=== PATIENT | female | born 1970 | race Two or more races ===

== ENCOUNTER 2017-01-02 21:56 | Emergency (ER) | payer OTHER | END 2017-01-03 00:04 | disposition home or self-care (01) | LOC: ED 21:56 | DX: J70.5 Respiratory conditions due to smoke inhalation (principal); R51 Headache; T59.811A Toxic effect of smoke, accidental (unintentional), initial encounter; Y92.000 Kitchen of unspecified non-institutional (private) residence as the place of occurrence of the external cause ==